=== PATIENT | female | born 1935 | race African-American/Black ===

== ENCOUNTER 2017-02-11 18:30 | Emergency (ER) | payer MEDICARE ==
--- NOTE | 2017-02-11 20:46 | RADIOLOGY REPORT (SQ) ---
EXAM DESCRIPTION: CT RT LOWER EXTREMITY WITHOUT COMPLETED DATE/TIME: 02/11/2017 8:32 pm REASON FOR STUDY: Swollen over the right hip COMPARISON: None. TECHNIQUE: CT scan of the right hip performed without intravenous or oral contrast. Images reviewed with soft tissue and bone windows. Reconstructed coronal and sagittal MPR images reviewed. All gemma ges stored on PACS. All CT scanners at this facility use dose modulation, iterative reconstruction, and/or weight based d osing when appropriate to reduce radiation dose to as low as reasonably achievable (ALARA). [facility]: Dose Right [facility]: CareDose [facility]: Dose Right [facility]: Teradose 4D [facility]: Smart Cubeyou RADIATION DOSE: Up-to-date CT equipment and radiation dose reduction techniques were employed. CTDIv ol: 4.1 mGy. DLP: 154 mGy-cm. mGy. LIMITATIONS: Positioning. FINDINGS: Bones are osteopenic. No evidence of displaced fracture. Swelling over the greater troch anter. No foreign body identified. IMPRESSION: Soft tissue injury. No fracture identified. TECHNICAL DOCUMENTATION: JOB ID: [id number] Quality ID # [id number]: Final reports with documentation of one or more dose reduction techniques (e.g., Au tomated exposure control, adjustment of the mA and/or kV according to patient size, use of iterative reconstruction technique) 2010 [employer]- All Rights Reserved
--- NOTE | 2017-02-11 22:43 | ER Document Report ---
ED Hip Pain/Injury - General Chief Complaint: Hip Pain Stated Complaint: HIP PAIN Time Seen by Provider: 02/11/17 19:00 Notes: [facility] large lump that she has over the region of the greater trochanter of the right femur that reportedly has been present since yesterday morning. Patient is a resident of a local senior care and reported to be non-verbal. On some of her paperwork it says that she is alert and oriented, but on questioning the staff at that facility, they said that they meant that she was awake and could tell you were in the room. Patient does not talk. I did call and was able to reach her daughter, Gabriella Maravilla and she said that the way I am describing the patient to be at this time is exactly her normal state. She is bed confined and nonverbal. She has not been sick or ill in any way in the recent past and the daughter has not been informed of the patient having been dropped or any other injury to that right hip. Patient has no other swollen areas elsewhere on her body. She has severe contractures of all 4 extremities and is unable to straighten her extremities to do satisfactory x-rays. TRAVEL OUTSIDE OF THE [place] IN LAST 30 DAYS: No - Related Data Allergies/Adverse Reactions: Sulfa (Sulfonamide Antibiotics) Allergy (Unknown, Verified 04/04/15 17:47) Past Medical History - Social History Smoking Status: Unknown if Ever Smoked Cigarette use (# per day): No Chew tobacco use (# tins/day): No Frequency of alcohol use: None Drug Abuse: None Family History: Reviewed & Not Pertinent - Past Medical History Cardiac Medical History: Reports: Hx Congestive Heart Failure, Hx Hypertension Pulmonary Medical History: Reports: Hx COPD Neurological Medical History: Reports: Hx Cerebrovascular Accident, Other - Dementia GI Medical History: Reports: Hx Gastroesophageal Reflux Disease Musculoskeltal Medical History: Reports Hx Arthritis - Osteoarthritis Psychiatric Medical History: Reports: Hx Dementia Past Surgical History: Reports: Hx Hysterectomy - Immunizations Hx Diphtheria, Pertussis, Tetanus Vaccination: Yes Review of Systems - Review of Systems -: Yes ROS unobtainable due to patient's medical condition - Patient does not speak. No staff here. No family here. Physical Exam - Vital signs Vitals: Temp Pulse Resp BP Pulse Ox 97.9 F 71 16 163/75 H 99 02/11/17 18:39 02/11/17 18:39 02/11/17 18:39 02/11/17 18:39 02/11/17 18:39 Interpretation: Normal - Notes Notes: PHYSICAL EXAMINATION: GENERAL: Chronically ill appearing with severe four limb contractures, but in no acute distress. Unable to straighten any of her joints of her 4 extremities. Occasionally, patient grimaces from apparent pain when she is moved all her extremities are moved. HEAD: Atraumatic, normocephalic. ENT: Moist mucous membranes. NECK: Normal range of motion, supple. LUNGS: Breath sounds clear and equal bilaterally. HEART: Regular rate and rhythm without murmurs. ABDOMEN: Soft, nontender. No guarding or rebound. No feeding tubes present. BACK: No tenderness throughout entire back. EXTREMITIES: All 4 extremities with severe contractures of all the joints. Patient is laying on her left side with her right hip up. Over the greater trochanter, there is a significant firm soft tissue swelling about 3" x 6" in size that has some purplish colored bruising over about a third to half of the swelling. No fluctuance present. No erythema and no increased heat to the touch. No lymphangitis. No abrasions to the skin. NEUROLOGICAL: Patient does not seem to interact in any way. She grimaces occasionally with perhaps pain. Does not follow commands or answer questions or in any way to communicate with the examiner. SKIN: Warm, dry, no rashes. Course - Re-evaluation Re-evalutation: 02/11/17 22:49 I spoke with the patient's daughter and informed her of our findings. She said the patient was only sent here for one thing and that was to assess that swelling over her right hip. Otherwise, she says that the patient is her usual normal self and has not been abnormal in any way and they had no indication in having any other workup done - Vital Signs Vital signs: Temp Pulse Resp BP Pulse Ox 97.9 F 71 16 163/75 H 99 02/11/17 18:39 02/11/17 18:39 02/11/17 18:39 02/11/17 18:39 02/11/17 18:39 - Diagnostic Test Radiology reviewed: Image reviewed, Reports reviewed - CT scan shows soft tissue swelling over the greater trochanter of the right femur. No fluid collection present. Discharge - Discharge Clinical Impression: Contusion of right hip Qualifiers: Encounter type: initial encounter Qualified Code(s): S70.01XA - Contusion of right hip, initial encounter Condition: Stable Disposition: HOME, SELF-CARE Additional Instructions: CONTUSION RIGHT HIP: Your injury has resulted in a contusion -- a crushing of the deep tissues. No injury to important structures was detected during the physician's exam. Contusions vary in the amount of pain they cause, and in the length of time required for healing. Typically, the area will become bruised, and will remain painful to touch for two or three weeks. However, most patients are back to working and playing within a few days. After the initial period of rest and cold-packs, your symptoms (together with the doctor's recommendations) will determine how rapidly you can get back to full activity. Usually this means "do what feels okay, but don't do things that hurt." If re-examination was recommended, it's important to follow up as instructed. Call the doctor or return any time if pain increases, if swelling becomes severe, if you develop numbness or weakness in an injured extremity, or if any other alarming symptoms occur. USE OF TYLENOL (ACETAMINOPHEN): Acetaminophen may be taken for pain relief or fever control. It's much safer than aspirin, offering a wider range of "safe" dosages. It is safe during . Some brand names are Tylenol, Panadol, Datril, Anacin 3, Tempra, and Liquiprin. Acetaminophen can be repeated every four hours. The following are maximum recommended dosages: WEIGHT Dose Drops Elixir Chewable( 80mg) (LBS.) drprs=droppers tsp=teaspoon 6 40 mg 0.4 ml (1/2) 6-11 80 mg 0.8 ml (full) tsp 1 tab 12-16 120 mg 1 1/2 drprs 3/4 tsp 1 1/2 tabs 17-23 160 mg 2 drprs 1 tsp 2 tabs 24-30 240 mg 3 drprs 1 1/2 tsp 3 tabs 30-35 320 mg 2 tsp 4 tabs 36-41 360 mg 2 1/4 tsp 4 1/2 tabs 42-47 400 mg 2 1/2 tsp 5 tabs 48-53 480 mg 3 tsp 6 tabs 54-59 520 mg 3 1/4 tsp 6 1/2 tabs 60-64 560 mg 3 1/2 tsp 7 tabs 65-70 600 mg 3 3/4 tsp 7 1/2 tabs 71-76 640 mg 4 tsp 8 tabs 77-82 720 mg 4 1/2 tsp 9 tabs 83-88 800 mg 5 tsp 10 tabs >89 pounds or adults 650 mg to 900 mg Acetaminophen can be repeated every four hours. Maximum dose not to exceed 4000 mg a day. These maximum recommended dosages are slightly higher than the dosages written on the product container, but these dosages are very safe and below the toxic dosage for acetaminophen. ICE PACKS: Apply ice packs frequently against the painful area. Many different schedules are recommended, such as "20 minutes on, 20 minutes off" or "one hour ice, two hours rest." If you need to work, you may need to go longer between ice treatments. You should plan to have the area ice packed AT LEAST one fourth of the time. The ice should be applied over the wrap, tape, or splint, or over a layer of cloth -- not directly against the skin. Some ice bags have a built-in cloth and can be put directly on the skin. FOLLOW-UP CARE: If you have been referred to a physician for follow-up care, call the physician s office for an appointment as you were instructed or within the next two days. If you experience worsening or a significant change in your symptoms, notify the physician immediately or return to the Emergency Department at any time for re-evaluation.
[2017-02-11 22:58] VITALS: BP 160/75
== END 2017-02-11 23:45 | disposition home or self-care (01) ==
LOC: ER 18:30
DX: S70.01XA Contusion of right hip, initial encounter (principal); M25.551 Pain in right hip; X58.XXXA Exposure to other specified factors, initial encounter
CPT/HCPCS: 99285